=== PATIENT | male | born 1965 | race African-American/Black ===

== ENCOUNTER 2023-03-22 12:03 | Emergency (ER) | payer OTHER ==
[~2023-03-22] VITALS: Ht 180.3 cm; Wt 101.2 kg
[2023-03-22 12:12] VITALS: BP 129/78; PULSE 82; RESP 16; TEMP 98.2; O2SAT 99
[2023-03-22 12:43] LABS: BASOPHILS % 0.5 % (0.0-2.0); HEMATOCRIT. 47.3 % (42.0-52.0); HEMOGLOBIN. 15.7 g/dL (14.0-18.0); LYMPHOCYTES % 36.5 % (20.0-50.0); MEAN CORPUSCULAR HEMOGLOBIN 29.5 pg (28.0-32.0); MEAN CORPUSCULAR HGB CONC 33.1 g/dL (31.0-37.0); MEAN CORPUSCULAR VOLUME 89.3 fL (80.0-94.0); MEAN PLATELET VOLUME 7.4 fl (7.4-10.4); MONOCYTES % 7.7 % (2.0-8.0); NEUTROPHILS % 53.3 % (40.0-76.0); PLATELET 261 x1000/uL (130-400); RED CELL DISTRIBUTION WIDTH 14.1 % (11.6-14.6); WHITE BLOOD COUNT 7.8 x1000/uL (4.5-11.0)
[2023-03-22 13:03] LABS: ALANINE AMINOTRANSFERASE 33 IU/L (10-49); ALBUMIN 4.7 g/dL (3.2-4.8); ASPARTATE AMINOTRANSFERASE 44 IU/L (<34); BILIRUBIN TOTAL 0.8 mg/dL (0.1-1.0); CALCIUM 9.7 mg/dL (8.7-10.4); CARBON DIOXIDE 26 mEq/L (21-32); CHLORIDE 102 mEq/L (98-107); GLUCOSE 87 mg/dL (70-105); POTASSIUM 4.1 mEq/L (3.5-5.1); PROTEIN TOTAL 8.2 g/dL (6.0-8.3); SODIUM 135 mEq/L (136-145); UREA NITROGEN BLOOD 9 mg/dL (9-23)
[2023-03-22 13:04] LABS: PROTHROMBIN TIME 10.9 sec (9.6-11.0)
[2023-03-22 13:21] LABS: TROPONIN I HIGH SENSITIVITY < 4 ng/L (3.0-53)
[2023-03-22] MEDS ORDERED: FAMO20TA8 MT (17:14)
== END 2023-03-22 17:16 | disposition home or self-care (01) ==
LOC: ER 12:03
DX: K21.9 Gastro-esophageal reflux disease without esophagitis (principal)
CPT/HCPCS: 36415; 71045; 80053; 84484; 85025; 93005; 99285

== ENCOUNTER 2023-03-30 11:58 | Emergency (ER) | payer OTHER ==
[~2023-03-30] VITALS: Ht 182.4 cm; Wt 103.0 kg
[~2023-03-30 11:58] MED LIST: FAMO20TA8 MT
[2023-03-30 12:12] VITALS: O2SAT 99
[2023-03-30] MEDS ORDERED: IBUP-2028 MT (13:50)
[2023-03-30] MEDS ORDERED: ACET-2708 MT (13:50)
[2023-03-30] MEDS ORDERED: LIDO700A15 TP (13:50)
[2023-03-30] MEDS ORDERED: CYCLOBENZAPRINE 10MG TABLET PO ONE (14:15)
[2023-03-30] MEDS ORDERED: KETOROLAC 60MG/2ML VIAL IM ONE (14:15)
[2023-03-30 14:29] VITALS: BP 126/81; PULSE 76; RESP 18; TEMP 98.2
== END 2023-03-30 14:31 | disposition home or self-care (01) ==
LOC: ER 11:58
DX: S16.1XXA Strain of muscle, fascia and tendon at neck level, initial encounter (principal); X58.XXXA Exposure to other specified factors, initial encounter; Y93.89 Activity, other specified; Y92.89 Other specified places as the place of occurrence of the external cause; Y99.8 Other external cause status
CPT/HCPCS: 99284; 70450; 72125; J1885

== ENCOUNTER 2023-09-24 15:43 | Emergency (ER) | payer OTHER ==
[~2023-09-24] VITALS: Ht 182.9 cm; Wt 91.0 kg
[~2023-09-24 15:43] MED LIST changes: +ACET-2708 MT; +IBUP-2028 MT; +LIDO700A15 TP
[2023-09-24 15:53] VITALS: O2SAT 97
[2023-09-24 17:16] VITALS: BP 131/70; PULSE 80; RESP 18; TEMP 98.1
== END 2023-09-24 17:15 | disposition home or self-care (01) ==
LOC: ER 15:43
DX: H61.22 Impacted cerumen, left ear (principal)
CPT/HCPCS: 69210; 99282